=== PATIENT | male | born 1935 | race Caucasian/White ===

== ENCOUNTER 2017-04-30 18:49 | Emergency (ER) | payer OTHER ==
[~2017-04-30] VITALS: Ht 182.9 cm; Wt 81.7 kg
--- NOTE | ~2017-04-30 | EKG ---
[place] [address] [facility] [place] [address] ELECTROCARDIOGRAM REPORT Name: LAUREN WILKS Room #: DEP KARLI Swanson#: [id number] Admission: 04/30/17 Attend Phys: Discharge: 04/30/17 Date of : 31 Report #: [id number] THIS REPORT FOR: //name// [facility] ED Test Date: 2017-04-30 Test Time: 19:11:29 Pat Name: LAUREN WILKS Department: Room: Gender: Tour Operator: [facility] : 1935 Requested By: Susana Russo Order Number: [id number] MD: Humble Nathan Measurements Intervals [place] Rate: 65 P: MT: QRS: 47 QRSD: 110 T: 48 QT: 429 QTc: 447 Interpretive Statements Atrial fibrillation Anteroseptal infarct, age indeterminate No previous ECG available for comparison Electronically Signed On 05-02-2017 8:23:58 CDT by Humble Nathan [email or web address] <ELECTRONICALLY SIGNED> By: Humble Nathan MD, [facility] 05/02/17 0823 191 10 Humble Nathan MD, FACC /EPI
[2017-04-30 18:52] VITALS: BP 92/53
[2017-04-30 19:14] LABS: URINE BILIRUBIN NEGATIVE (Negative); URINE BLOOD TRACE (Negative); URINE COLOR YELLOW; URINE GLUCOSE-RANDOM* NEGATIVE (Negative); URINE KETONES NEGATIVE (Negative); URINE NITRITE NEGATIVE (Negative); URINE PROTEIN (DIPSTICK) TRACE (Negative); URINE SPECIFIC GRAVITY >= 1.030 (1.003-1.035)
[2017-04-30 19:22] LABS: ABSOLUTE NEUTROPHILS 3.1 thou/uL (1.4-8.2); BASOPHILS 0.8 % (0.0-2.0); EOSINOPHILS 5.3 % (0.0-3.0); HEMATOCRIT 35.1 % (42.0-52.0); HEMOGLOBIN 12.3 gm/dL (14.0-18.0); LYMPHOCYTES 19.7 % (24.0-44.0); MANUAL DIFF NO; MCH 32.4 pg (26.0-34.0); MCHC 35.1 g/dL (28.0-37.0); MCV 92.3 fL (80.0-100.0); MONOCYTES 7.1 % (1.0-8.0); PLATELET COUNT 180 thou/uL (150-400); POLYS 67.1 % (36.0-66.0); RDW 14.3 % (10.5-14.5); WBC 4.6 thou/uL (4.0-11.0)
[2017-04-30 19:30] LABS: ANION GAP 7 mmol/L (7-16); BUN 20 mg/dL (7-18); CALCIUM 8.6 mg/dL (8.5-10.1); CHLORIDE 111 mmol/L (98-107); CO2 26 mmol/L (21-32); CREATININE 0.9 mg/dL (0.7-1.3); GLUCOSE 93 mg/dL (74-106); POTASSIUM 3.8 mmol/L (3.5-5.1); SODIUM 144 mmol/L (136-145)
[2017-04-30 19:38] LABS: TROPONIN-I < 0.04 ng/mL (<0.04-0.07)
[2017-04-30] MEDS ORDERED: DEPAKOTE 250MG250 M1 PO (20:21)
[2017-04-30] MEDS ORDERED: FLOMAX0.4 MG PO (20:21)
[2017-04-30] MEDS ORDERED: SEROQUEL 100 M100 M1 PO (20:21)
[2017-04-30] MEDS ORDERED: SEROQUEL 25 MG25 M1 PO (20:22)
[2017-04-30] MEDS ORDERED: LIPITOR 20 MG T20 M1 PO (20:22)
== END 2017-04-30 20:44 ==
LOC: ER 18:49
PROVIDERS: Emergency Medicine
DX: F03.91 Unspecified dementia, unspecified severity, with behavioral disturbance (principal); I48.91 Unspecified atrial fibrillation; I10 Essential (primary) hypertension; Z88.6 Allergy status to analgesic agent